=== PATIENT | female | born 1990 | race Caucasian/White ===

== ENCOUNTER 2018-03-15 00:59 | Emergency (ER) | payer OTHER ==
[~2018-03-15] VITALS: Ht 172.7 cm; Wt 104.3 kg
[~2018-03-15 00:59] MED LIST: ALBIPROI INH; ALBU3IS INH; ALBU90I INH; ALBU90OI INH; ALBU90OI6 INH; ALBU90OI61 INH; ALBUTEROL INH; ALPR.5 PO; AMOX250 PO; AMPDEX10CR PO; ARIP10 PO; AZIT250 PO; AZIT500 PO; BENZ100A PO; BIRTH CONTROL IMPLAN; BUDE10.22 INH; BUSP10 PO; BUSP5 PO; Benadryl 50 mg50 MG PO; CETI5 PO; CLON.1 PO; CLON.3 PO; CODACE30 PO; CODGUAEL PO; COMBIVENT RESPIM4 GM INH; Cipro500 MG PO; Cyclobenzaprine5 MG PO; DIPATR PO; DOXY100 PO; Duoneb 2.5-0.5 M3 ML IH; FLUT44OIA IH; HYDACE5 PO; HYDPAM25 PO; HYDR1TAB94 PO; IBUP600 PO; IBUP800 PO; IMPLANON; IPRATROPIUM INH; LANS15EC PO; LAVAP17G PO; LORA10ER PO; MAGIC MOUTHWASH; METPRE4DP PO; METR500 PO; MULVITMINE PO; NAPR250; NAPR375 PO; Norco 10-325 T1 EACH PO; Nystatin15 GM TOP; ONDA4ODT MM; OXYACE5T PO; PENVK500 PO; PRED10 PO; PRED20 PO; PREN-16 PO; PROM25 PO; PROM6.25SY PO; Percocet 10-321 EACH PO; Prednisone20 MG PO; Pyridium200 MG PO; RANI150 PO; RXALBOI INH; RXCODACET PO; RXNAPNA550 PO; RXOXYACE PO; RXPENVK250 PO; RXPROCODSY PO; RXPROM25 PO; SULTRIDS PO; TRAM50 PO; TRIAOI IH; Ultram50 MG PO; Ventolin Soln3 ML INH; ZAFI20 PO; Zithromax250 MG PO; [UNRECOGNIZED DRUG - OTHER]
[2018-03-15 02:00] LABS: Source, Urine Clean Catch
[2018-03-15 02:06] LABS: Bilirubin, Urine Neg (Neg); Blood, Urine 1+ (Neg); Glucose Qualitative, Urine Neg (Neg); Ketones, Urine Neg (Neg); Leukocyte Esterase, Urine 3+ (Neg); Nitrite, Urine Neg (Neg); Protein, Urine Neg (Neg); Urobilinogen, Urine NORM (Normal)
[2018-03-15 02:11] LABS: Appearance, Urine Clear (Clear); Bacteria Mod /hpf; Color, Urine Yellow (P-Yellow); Red Blood Cells, Urine 0-2 /hpf (0-2); Squamous Epithelial Cells Mod /hpf (Few)
[2018-03-15 02:53] LABS: BASOPHILS ABSOLUTE AUTO 0.06 K/mm3 (0.00-0.23); BASOPHILS PERCENT AUTO 1 % (0-2); EOSINOPHILS ABSOLUTE AUTO 0.47 K/mm3 (0.00-0.68); EOSINOPHILS PERCENT AUTO 4 % (0-6); Hemoglobin 13.4 g/dL (11.5-16.0); IMMATURE GRAN ABSOLUTE AUTO 0.04 K/mm3 (0.00-0.10); IMMATURE GRAN PERCENT AUTO 0 % (0-1); LYMPHOCYTES ABSOLUTE AUTO 4.09 K/mm3 (0.84-5.20); LYMPHOCYTES PERCENT AUTO 32 % (21-46); MONOCYTES ABSOLUTE AUTO 0.76 K/mm3 (0.16-1.47); MONOCYTES PERCENT AUTO 6 % (4-13); Mean Corpuscular HGB Conc 33.5 g/dL (31.5-36.5); Mean Corpuscular Volume 87 fL (80-100); Mean Platelet Volume 8.5 fL (9.1-12.4); NEUTROPHILS PERCENT AUTO 58 % (41-73); Platelet Count 310 K/mm3 (150-400); RDW Standard Deviation 41.2 fL (35.1-46.3); Red Blood Cell Count 4.62 M/mm3 (3.80-5.20); White Blood Cell Count 12.92 K/mm3 (4.00-11.30)
[2018-03-15 03:12] LABS: Alanine Aminotransfer (ALT/SGP 24 U/L (12-78); Albumin, Blood 3.3 g/dL (3.4-5.0); Albumin/Globulin Ratio 0.9 (0.8-1.8); Alk Phos 47 U/L (50-136); Anion Gap 8 mmol/L (6-16); Aspartate Aminotrans (AST/SGOT 16 U/L (12-37); Bilirubin, Total 0.2 mg/dL (0.1-1.0); Blood Urea Nitrogen 13 mg/dL (8-24); Bun/Creatinine Ratio 16.3 (12.0-20.0); CO2, Blood 24 mmol/L (21-32); Calcium, Blood 8.3 mg/dL (8.5-10.1); Chloride, Blood 109 mmol/L (98-108); Globulin, Blood 3.8 g/dL (2.2-4.0); Glomerular Filtration Rate >60 (60-); Glucose, Blood 104 mg/dL (70-99); Potassium, Blood 3.6 mmol/L (3.5-5.5); Sodium, Blood 141 mmol/L (136-145); Total Protein, Blood 7.1 g/dL (6.4-8.2)
[2018-03-15] MEDS ORDERED: Bactrim 400-801 EACH PO (04:27)
== END 2018-03-15 04:45 | disposition home or self-care (01) ==
LOC: ER 00:59
PROVIDERS: Emergency Medicine
DX: O20.9 Hemorrhage in early pregnancy, unspecified (principal); O23.41 Unspecified infection of urinary tract in pregnancy, first trimester; O99.341 Other mental disorders complicating pregnancy, first trimester; F31.9 Bipolar disorder, unspecified; O99.511 Diseases of the respiratory system complicating pregnancy, first trimester; J45.909 Unspecified asthma, uncomplicated; O99.331 Smoking (tobacco) complicating pregnancy, first trimester; F17.210 Nicotine dependence, cigarettes, uncomplicated; Z3A.01 Less than 8 weeks gestation of pregnancy; Z88.0 Allergy status to penicillin; Z88.1 Allergy status to other antibiotic agents; Z88.5 Allergy status to narcotic agent; Z88.2 Allergy status to sulfonamides; Z79.899 Other long term (current) drug therapy
CPT/HCPCS: 36415; 80053; 81001; 84702; 85025; 86900; 86901; 87086; 99284

== ENCOUNTER → 2018-11-02 | Outpatient (CLI) | payer OTHER ==
[~2018-11-02] MED LIST changes: +Bactrim 400-801 EACH PO; +Percocet 5-3251 EACH PO
[2018-11-02 17:21] LABS: Protein, Urine Quantitative 19.3 mg/dL (0.0-11.9)
== END | disposition home or self-care (01) ==
LOC: LAB SHORT 15:57 → LAB 15:57
PROVIDERS: Obstetrics & Gynecology
DX: Z36.89 Encounter for other specified antenatal screening (principal)
CPT/HCPCS: 81050; 84156

== ENCOUNTER 2018-11-08 05:40 | Inpatient (IN) | payer OTHER ==
[~2018-11-08] VITALS: Ht 172.7 cm; Wt 0.4 kg
[~2018-11-08 05:40] MED LIST changes: -Percocet 5-3251 EACH PO
[2018-11-08 08:24] LABS: BASOPHILS ABSOLUTE AUTO 0.06 K/mm3 (0.00-0.23); BASOPHILS PERCENT AUTO 1 % (0-2); EOSINOPHILS ABSOLUTE AUTO 0.33 K/mm3 (0.00-0.68); EOSINOPHILS PERCENT AUTO 3 % (0-6); Hematocrit 36.4 % (33.0-51.0); Hemoglobin 11.8 g/dL (11.5-16.0); IMMATURE GRAN ABSOLUTE AUTO 0.03 K/mm3 (0.00-0.10); IMMATURE GRAN PERCENT AUTO 0 % (0-1); LYMPHOCYTES ABSOLUTE AUTO 2.81 K/mm3 (0.84-5.20); LYMPHOCYTES PERCENT AUTO 24 % (21-46); MONOCYTES ABSOLUTE AUTO 0.89 K/mm3 (0.16-1.47); MONOCYTES PERCENT AUTO 8 % (4-13); Mean Corpuscular HGB 27.6 pg (26.0-34.0); Mean Corpuscular HGB Conc 32.4 g/dL (31.5-36.5); Mean Corpuscular Volume 85 fL (80-100); NEUTROPHILS ABSOLUTE AUTO 7.43 K/mm3 (1.96-9.15); NEUTROPHILS PERCENT AUTO 64 % (41-73); Platelet Count 344 K/mm3 (150-400); RDW Coefficient Variation 13.6 % (11.7-14.2); RDW Standard Deviation 42.1 fL (35.1-46.3); Red Blood Cell Count 4.27 M/mm3 (3.80-5.20); White Blood Cell Count 11.55 K/mm3 (4.00-11.30)
--- NOTE | 2018-11-08 15:02 | NUR ---
PATIENT AUTHORIZED STUDENT TO WATCH CARE/ .
--- NOTE | 2018-11-08 21:45 | NUR ---
LARGE CLOT AND CERVIX PROLAPSE PATIENT SITTING ON TOLIET ATTEMPTING FIRST POST VOID, EXPELLED LARGE CLOT, EGG SHAPED ESTIMATING 4X3 IN IN DIAMETER. PATIENT THEN STATED THAT SHE FELT THE URGE TO PUSH SIMILAR TO . UPON ASSESSMENT PATIENT HAD A MASS OF SMOOTH TISSUE EXTENDING 2 IN OUTSIDE OF VAGINA. SWING GRINDER NOTIFIED AND SUSPECTED A PROLPASED CERVIX. PATIENT'S DR. NOTIFIED BY SWING GRINDER, GIVING INSTRUCTIONS TO MANUALLY PUSH CERVIX BACK INTO PLACE AND ADMINISTER METHERGINE AND CYTOTEC. CERVIX HAD DRAWN ITSELF BACK INTO THE VAGINA BEFORE MANUAL PLACEMENT COULD BE PERFORMED. PATIENT INSTRUCTED TO PERFORM KEGELS, PREVENT CONSTIPATION, AND HOW TO MANUALLY PUSH HER CERVIX BACK IF PROLAPSE PRESENT.
--- NOTE | 2018-11-09 00:23 | NUR ---
FIRST VOID AT 0000 VOIDING WITHOUT DIFFICULTY, BURNING SENSATION PRESENT
[2018-11-09 05:34] LABS: BASOPHILS ABSOLUTE AUTO 0.05 K/mm3 (0.00-0.23); BASOPHILS PERCENT AUTO 0 % (0-2); EOSINOPHILS ABSOLUTE AUTO 0.36 K/mm3 (0.00-0.68); EOSINOPHILS PERCENT AUTO 2 % (0-6); Hematocrit 32.9 % (33.0-51.0); Hemoglobin 10.7 g/dL (11.5-16.0); IMMATURE GRAN ABSOLUTE AUTO 0.05 K/mm3 (0.00-0.10); IMMATURE GRAN PERCENT AUTO 0 % (0-1); LYMPHOCYTES ABSOLUTE AUTO 3.66 K/mm3 (0.84-5.20); LYMPHOCYTES PERCENT AUTO 24 % (21-46); MONOCYTES ABSOLUTE AUTO 0.92 K/mm3 (0.16-1.47); MONOCYTES PERCENT AUTO 6 % (4-13); Mean Corpuscular HGB 28.1 pg (26.0-34.0); Mean Corpuscular HGB Conc 32.5 g/dL (31.5-36.5); Mean Corpuscular Volume 86 fL (80-100); Mean Platelet Volume 9.3 fL (9.1-12.4); NEUTROPHILS ABSOLUTE AUTO 10.16 K/mm3 (1.96-9.15); NEUTROPHILS PERCENT AUTO 67 % (41-73); Platelet Count 280 K/mm3 (150-400); RDW Coefficient Variation 13.6 % (11.7-14.2); RDW Standard Deviation 42.5 fL (35.1-46.3); Red Blood Cell Count 3.81 M/mm3 (3.80-5.20)
--- NOTE | 2018-11-09 08:36 | NUR ---
PT IN ROOM, CRYING TALKING ON PHONE, SOMTHING ABOUT A GERSON, PERSON ON PHONE IS VERY SUPPORTIVE TOWARDS PT, DONT KNOW WHO CALL IS ABOUT OR WHY,
--- NOTE | 2018-11-09 10:05 | NUR ---
pt was given 1 perc and 1 motrin for her pain, she declined the last tordal, felt it wasnt working at all for her.
[2018-11-09] MEDS ORDERED: IBUP800 PO (10:19)
[2018-11-09] MEDS ORDERED: Percocet 5-3251 EACH PO (10:20)
--- NOTE | 2018-11-09 16:14 | NUR ---
PT CONCERNED ABOUT GOING HOME WITH BABY BEING A LITTLE SPITTY, SHE OCC WILL SPIT UP CLEAR FLUID, OFFERED PT TO STAY TIL TOMORROW. PT DECLINES REPORTS BABY HAS BEEN WELL. SHE HAS NO CONCERNS WITH FEEDS. SHE REPORTS SHE IS READY TO GO HOME AND WANTS TO STILL GO HOME THIS EVENING WHEN SHE CAN.
== END 2018-11-09 19:49 | disposition home or self-care (01) | DRG 998 ==
LOC: BC 05:40
PROVIDERS: ADMIT Obstetrics & Gynecology
PROC: 10907ZC Drainage of Amniotic Fluid, Therapeutic from Products of Conception, Via Natural or Artificial Opening (ICD-10-PCS; principal; 2018-11-08)
PROC: 10D17ZZ Extraction of Products of Conception, Retained, Via Natural or Artificial Opening (ICD-10-PCS; 2018-11-08)
PROC: 3E033VJ Introduction of Other Hormone into Peripheral Vein, Percutaneous Approach (ICD-10-PCS; 2018-11-08)
PROC: 3E0R3BZ Introduction of Anesthetic Agent into Spinal Canal, Percutaneous Approach (ICD-10-PCS; 2018-11-08)
PROC: 00HU33Z Insertion of Infusion Device into Spinal Canal, Percutaneous Approach (ICD-10-PCS; 2018-11-08)
DX: O99.52 Diseases of the respiratory system complicating childbirth (principal); O98.82 Other maternal infectious and parasitic diseases complicating childbirth; J44.9 Chronic obstructive pulmonary disease, unspecified; F43.10 Post-traumatic stress disorder, unspecified; O99.344 Other mental disorders complicating childbirth; F41.9 Anxiety disorder, unspecified; F60.3 Borderline personality disorder; O99.354 Diseases of the nervous system complicating childbirth; G43.909 Migraine, unspecified, not intractable, without status migrainosus; O99.334 Smoking (tobacco) complicating childbirth; B95.1 Streptococcus, group B, as the cause of diseases classified elsewhere; O69.81X0 Labor and delivery complicated by cord around neck, without compression, not applicable or unspecified; Z3A.39 39 weeks gestation of pregnancy
CPT/HCPCS: 36415; 51702; 85025; 94640; 94760; J0290; J1885; J2210; J2405; J2590; J7120

== ENCOUNTER 2020-07-07 14:25 | Emergency (ER) | payer OTHER ==
[~2020-07-07] VITALS: Ht 172.7 cm; Wt 99.8 kg
[~2020-07-07 14:25] MED LIST changes: +Percocet 5-3251 EACH PO
[2020-07-07] MEDS ORDERED: ONDA4ODT SL (15:56)
[2020-07-07] MEDS ORDERED: Flonase 0.05% N16 GM (15:56)
== END 2020-07-07 16:01 | disposition home or self-care (01) ==
LOC: ER 14:25
DX: R51.9 Headache, unspecified (principal); R11.0 Nausea; F31.9 Bipolar disorder, unspecified; J45.909 Unspecified asthma, uncomplicated; F17.210 Nicotine dependence, cigarettes, uncomplicated; Z88.1 Allergy status to other antibiotic agents; Z88.0 Allergy status to penicillin; Z88.2 Allergy status to sulfonamides
CPT/HCPCS: 99282

== ENCOUNTER 2021-03-28 00:31 | Day surgery (SDC) | payer OTHER ==
[~2021-03-28 00:31] MED LIST changes: +Flonase 0.05% N16 GM; +ONDA4ODT SL
[2021-03-28] MEDS ORDERED: ALBU90OI INH (14:36)
== END 2021-03-28 23:57 | disposition home or self-care (01) ==
LOC: ATC 00:31
DX: U07.1 COVID-19 (principal); R05 Cough; R52 Pain, unspecified; F17.210 Nicotine dependence, cigarettes, uncomplicated; J45.40 Moderate persistent asthma, uncomplicated; E66.9 Obesity, unspecified; Z88.1 Allergy status to other antibiotic agents; Z88.2 Allergy status to sulfonamides; Z91.018 Allergy to other foods; Z91.013 Allergy to seafood; Z68.34 Body mass index [BMI] 34.0-34.9, adult
CPT/HCPCS: 96365; Q0243

== ENCOUNTER 2022-09-15 18:37 | Emergency (ER) | payer OTHER ==
[~2022-09-15] VITALS: Ht 157.5 cm; Wt 108.9 kg
[2022-09-15] MEDS ORDERED: COMBIVENT RESPIM4 G1 INH (19:39)
[2022-09-15 19:53] LABS: BASOPHILS ABSOLUTE AUTO 0.07 K/mm3 (0.00-0.23); BASOPHILS PERCENT AUTO 1 % (0-2); EOSINOPHILS ABSOLUTE AUTO 0.33 K/mm3 (0.00-0.68); EOSINOPHILS PERCENT AUTO 2 % (0-6); Hematocrit 40.1 % (33.0-51.0); Hemoglobin 13.6 g/dL (11.5-16.0); IMMATURE GRAN ABSOLUTE AUTO 0.05 K/mm3 (0.00-0.10); IMMATURE GRAN PERCENT AUTO 0 % (0-1); LYMPHOCYTES ABSOLUTE AUTO 3.39 K/mm3 (0.84-5.20); LYMPHOCYTES PERCENT AUTO 25 % (21-46); MONOCYTES ABSOLUTE AUTO 0.63 K/mm3 (0.16-1.47); MONOCYTES PERCENT AUTO 5 % (4-13); Mean Corpuscular HGB 29.4 pg (26.0-34.0); Mean Corpuscular HGB Conc 33.9 g/dL (31.5-36.5); Mean Corpuscular Volume 87 fL (80-100); Mean Platelet Volume 9.2 fL (9.1-12.4); NEUTROPHILS ABSOLUTE AUTO 9.34 K/mm3 (1.96-9.15); NEUTROPHILS PERCENT AUTO 68 % (41-73); Platelet Count 338 K/mm3 (150-400); RDW Coefficient Variation 12.2 % (11.7-14.2); RDW Standard Deviation 38.8 fL (35.1-46.3); Red Blood Cell Count 4.63 M/mm3 (3.80-5.20); White Blood Cell Count 13.81 K/mm3 (4.00-11.30)
[2022-09-15 20:04] LABS: Albumin, Blood 3.5 g/dL (3.4-5.0); Albumin/Globulin Ratio 0.9 (0.8-1.8); Bilirubin, Total 0.3 mg/dL (0.1-1.0); Bun/Creatinine Ratio 16.9 (12.0-20.0); Calcium, Blood 8.8 mg/dL (8.5-10.1); Creatinine, Blood 0.65 mg/dL (0.40-1.00); Globulin, Blood 3.9 g/dL (2.2-4.0); Potassium, Blood 3.8 mmol/L (3.5-5.5); Total Protein, Blood 7.4 g/dL (6.4-8.2)
== END 2022-09-15 22:07 | disposition home or self-care (01) ==
LOC: ER 18:37
PROVIDERS: Emergency Medicine
DX: O03.1 Delayed or excessive hemorrhage following incomplete spontaneous abortion (principal); O99.331 Smoking (tobacco) complicating pregnancy, first trimester; F17.210 Nicotine dependence, cigarettes, uncomplicated; Z3A.01 Less than 8 weeks gestation of pregnancy
CPT/HCPCS: 36415; 76801; 76817; 80053; 84702; 85025; 86850; 86900; 86901; J1170; J1885; J2405; J7030

== ENCOUNTER 2023-04-09 11:18 | Emergency (ER) | payer OTHER ==
[~2023-04-09] VITALS: Ht 172.7 cm; Wt 108.9 kg
[2023-04-09 11:27] VITALS: BP 124/77
== END 2023-04-09 17:55 | disposition home or self-care (01) ==
LOC: ER 11:18
DX: K14.9 Disease of tongue, unspecified (principal); N89.8 Other specified noninflammatory disorders of vagina; Z88.8 Allergy status to other drugs, medicaments and biological substances; Z88.0 Allergy status to penicillin; Z88.1 Allergy status to other antibiotic agents; Z88.2 Allergy status to sulfonamides; Z79.899 Other long term (current) drug therapy; J45.909 Unspecified asthma, uncomplicated; F17.210 Nicotine dependence, cigarettes, uncomplicated
CPT/HCPCS: 99283

== ENCOUNTER → 2023-04-09 | Outpatient (CLI) | payer OTHER ==
[~2023-04-09] MED LIST changes: +COMBIVENT RESPIM4 G1 INH
[2023-04-10 12:27] LABS: Candida species (DNA Probe) Negative (NEGATIVE); G. vaginalis (DNA Probe) Negative (NEGATIVE); T. vaginalis (DNA Probe) Positive (NEGATIVE)
== END | disposition home or self-care (01) ==
LOC: LAB 13:00 → LAB SHORT 13:00
PROVIDERS: Emergency Medicine
DX: N89.8 Other specified noninflammatory disorders of vagina (principal)
CPT/HCPCS: 87480; 87510; 87660

== ENCOUNTER → 2024-07-27 | Outpatient (CLI) | payer OTHER ==
[2024-08-07 11:22] LABS: HPV GENOTYPE 16 BY TMA Not Detected; HPV GENOTYPE 18/45 BY TMA Not Detected; HPV HIGH RISK BY TMA Detected; HPV SOURCE Cervical; HPVG SOURCE Cervical
== END ==
LOC: LAB SHORT 17:14 → LAB 17:14
PROVIDERS: Physician Assistant
DX: Z12.4 Encounter for screening for malignant neoplasm of cervix (principal)
CPT/HCPCS: 87624; 87625; G0123